=== PATIENT | female | born 1965 | race African-American/Black ===

== ENCOUNTER 2022-03-11 10:31 | Outpatient (CLI) | payer OTHER ==
[2022-03-11 12:18] LABS: #Eosinphils 0.4 10x3/uL (0.0-0.5); #Monocytes 0.7 10x3/uL (0.0-1.1); #Neutrophils 3.2 10x3/uL (1.5-8.4); %Basophils 0.6 % (0.0-2.0); %Eosinophils 6.1 % (0.0-6.0); %Lymphocytes 33.7 % (18.0-47.0); %Monocytes 11.1 % (0.0-10.0); Hemoglobin 11.9 g/dL (12.0-15.5); Mean Corpuscular HGB CONC 32.4 g/dL (32.0-36.0); Mean Corpuscular Hemoglobin 30.1 pg (27.0-33.0); Mean Corpuscular Volume 92.9 fl (81.6-98.3); Mean Platelet Volume 11.2 fl (7.4-10.4); Platelet Count 266 10x3/uL (150-450); Red Blood Cell (RBC) Count 3.95 10x6/uL (3.90-5.03); White Blood Cell (WBC) Count 6.6 10x3/uL (3.5-10.5)
[2022-03-11 12:33] LABS: INR-International Normal Ratio 0.9; Prothrombin Time 10.1 sec (9.5-12.1)
[2022-03-11 12:43] LABS: Anion Gap 14 mmol/L (10-20); BUN (Urea Nitrogen) 10 mg/dL (9.8-20.1); Calc. Creatinine Clearance 0 mL/min (70-130); Calcium 9.6 mg/dL (7.8-10.44); Carbon Dioxide 23 mmol/L (22-29); Chloride 107 mmol/L (98-107); Estimated GFR 84; Glucose 84 mg/dL (70-105); Potassium 4.8 mmol/L (3.5-5.1); Sodium 139 mmol/L (136-145)
== END 2022-03-11 10:32 | disposition home or self-care (01) ==
LOC: LABBT 10:31
PROVIDERS: ATTEND Orthopaedic Surgery
DX: Z01.818 Encounter for other preprocedural examination (principal); M16.12 Unilateral primary osteoarthritis, left hip
CPT/HCPCS: 80048; 85025; 85610; 87081; 93005; 93010

== ENCOUNTER 2022-03-16 05:27 | Observation (INO) | payer OTHER ==
[2022-03-16] MEDS ORDERED: Tranexamic Acid 1,000 MG/10 ML VIAL ONE (05:54)
[2022-03-16] MEDS ORDERED: Vancomycin (BATCH) 1.5 GRAM/300 ML BAG ONE (05:55)
[2022-03-16] MEDS ORDERED: Sodium Chloride 0.9% 100 ML ONE ×2 (05:55)
[2022-03-16] MEDS ORDERED: CEFAZOLIN 2 GM VIAL ONE (05:55)
[2022-03-16] MEDS ORDERED: Vancomycin 1 GM/200 ML (FROZEN) BAG ONE (05:56)
[2022-03-16] MEDS ORDERED: Midazolam HCl 2 mg/2 ml Vial ONE (06:04)
[2022-03-16] MEDS ORDERED: Propofol 1,000 MG/100 ML VIAL IV ONE ×2 (06:05→06:08)
[2022-03-16] MEDS ORDERED: fentaNYL PF 100 MCG/2 ML SYRINGE ONE ×2 (06:05→08:24)
[2022-03-16] MEDS ORDERED: Bupivacaine PF 0.5% 30 ML VIAL ONE (06:48)
[2022-03-16] MEDS ORDERED: Promethazine HCl 25 MG/ML VIAL IM PRN (06:58)
[2022-03-16] MEDS ORDERED: diphenhydrAMINE 25 MG CAP PO PRN (06:58)
[2022-03-16] MEDS ORDERED: HYDROcodone/Acetaminophen 10/325 mg Tablet PO PRN (06:58)
[2022-03-16] MEDS ORDERED: Zolpidem Tartrate 5 MG TAB PO PRN (06:58)
[2022-03-16 07:26] LABS: SARS-CoV-2 NAA Rapid Test Not Detected (NotDetected)
[2022-03-16] MEDS ORDERED: Ondansetron PF 4 MG/2 ML Vial ONE (07:30)
[2022-03-16] MEDS ORDERED: Rocuronium Bromide 10 MG/ML (10ML VIAL) ONE (07:30)
[2022-03-16] MEDS ORDERED: PROPOFOL 200 MG/20 ML VIAL ONE (07:30)
[2022-03-16] MEDS ORDERED: Glycopyrrolate 0.2 MG/ML 5 ML SYRINGE ONE (07:30)
[2022-03-16] MEDS ORDERED: Dexamethasone 20 MG/5 ML VIAL ONE (07:30)
[2022-03-16] MEDS ORDERED: Esmolol 100 MG/10 ML VIAL ONE (07:30)
[2022-03-16] MEDS ORDERED: Phenylephrine 10 MG/ML VIAL ONE (07:30)
[2022-03-16] MEDS ORDERED: Metoprolol Tartrate 5 MG/5 ML VIAL ONE ×2 (07:30→09:59)
[2022-03-16] MEDS ORDERED: Ketorolac Tromethamine 30 MG/ML VIAL ONE (07:30)
[2022-03-16] MEDS ORDERED: NEOSTIGMINE 3 MG/3 ML SYR 3 MG/3 ML SYRINGE ONE (07:30)
[2022-03-16] MEDS ORDERED: FENTANYL 50 MCG/ML 1 ML VIAL SLOW IVP PRN (07:32)
[2022-03-16] MEDS ORDERED: Ropivacaine 0.5% HCl/PF (150 MG/30 ML VIAL) ONE (08:10)
[2022-03-16] MEDS ORDERED: SUGAMMADEX SODIUM 200 MG/2 ML VIAL ONE ×2 (08:27→08:53)
[2022-03-16] MEDS ORDERED: Divalproex Sodium DR 500 MG TAB PO SCH (09:00)
[2022-03-16] MEDS ORDERED: FENTANYL 50 MCG/ML 1 ML VIAL ONE ×4 (09:34→13:46)
[2022-03-16] MEDS ORDERED: Lidocaine 1% MPF 2 ML VIAL ONE (12:09)
[2022-03-16 14:43] VITALS: BMI 27.9
[2022-03-16] MEDS: Aspirin 81 mg Enteric Coated Tablet PO SCH ×2 (14:56→20:15)
[2022-03-16] MEDS: Sodium Chloride 0.9% 1,000 ML IV SCH ×2 (14:56→15:05)
[2022-03-16] MEDS: CeleCOXIB 100 MG CAP PO SCH (14:56)
[2022-03-16] MEDS: traMADol HCl 50 MG TAB PO SCH ×3 (14:57→23:59)
[2022-03-16] MEDS: Senokot S 8.6-50 MG TAB PO SCH ×2 (14:57→20:15)
[2022-03-16] MEDS: Ferrous Gluconate 324 MG TAB PO SCH ×2 (14:57→20:15)
[2022-03-16] MEDS: hydrOXYzine 25 MG TAB PO SCH (14:57)
[2022-03-16] MEDS: Multivitamin W/ Minerals 1 TAB PO SCH (14:57)
[2022-03-16] MEDS: Lithium Carbonate 150 MG CAP PO SCH ×2 (14:57→20:15)
[2022-03-16] MEDS: CEFAZOLIN 2 GM in Sodium Chloride 0.9% 100 ML IVPB SCH ×2 (15:03→22:12)
[2022-03-16] MEDS: Ketorolac Tromethamine 30 MG/ML VIAL IVP SCH ×2 (15:04→22:12)
[2022-03-16] MEDS: HYDROcodone/Acetaminophen 10/325 mg Tablet PO PRN (15:04)
[2022-03-16] MEDS: Acetaminophen 325 MG TAB PO PRN (17:54)
[2022-03-16] MEDS: traZODone HCl 50 MG TAB PO SCH (20:15)
[2022-03-16] MEDS: Divalproex Sodium DR 500 MG TAB PO SCH (20:27)
[2022-03-17] MEDS: Ondansetron PF 4 MG/2 ML Vial IVP PRN ×2 (00:50→08:45)
[2022-03-17] MEDS: Sodium Chloride 0.9% 1,000 ML IV SCH ×3 (02:50→22:54)
[2022-03-17] MEDS ORDERED: Promethazine HCl 25 MG in Sodium Chloride 0.9% 50 ML IVPB SCH (03:15)
[2022-03-17] MEDS: Ketorolac Tromethamine 30 MG/ML VIAL IVP SCH ×3 (05:27→20:53)
[2022-03-17] MEDS: traMADol HCl 50 MG TAB PO SCH ×3 (05:28→17:48)
[2022-03-17 06:22] LABS: Hemoglobin 12.4 g/dL (12.0-16.0); Mean Corpuscular HGB CONC 32.8 g/dL (32.0-36.0); Mean Corpuscular Hemoglobin 31.2 pg (27.0-31.0); Mean Corpuscular Volume 95.3 fl (78.0-98.0); Mean Platelet Volume 9.4 fL (7.4-10.4); Platelet Count 194 10x3/uL (130-400); Red Blood Cell (RBC) Count 3.96 mill/uL (4.20-5.40); White Blood Cell (WBC) Count 17.2 10x3/uL (4.8-10.8)
[2022-03-17] MEDS: Calcium Carbonate 500 MG ChewTAB PO PRN (09:33)
[2022-03-17] MEDS: Ferrous Gluconate 324 MG TAB PO SCH ×2 (11:17→20:51)
[2022-03-17] MEDS: Senokot S 8.6-50 MG TAB PO SCH ×2 (11:18→20:49)
[2022-03-17] MEDS: Multivitamin W/ Minerals 1 TAB PO SCH (11:18)
[2022-03-17] MEDS: CeleCOXIB 100 MG CAP PO SCH (11:19)
[2022-03-17] MEDS: hydrOXYzine 25 MG TAB PO SCH (11:20)
[2022-03-17] MEDS: Lithium Carbonate 150 MG CAP PO SCH ×2 (11:20→20:50)
[2022-03-17] MEDS: Aspirin 81 mg Enteric Coated Tablet PO SCH ×2 (11:21→20:48)
[2022-03-17] MEDS: Acetaminophen 325 MG TAB PO PRN ×2 (14:51→20:48)
[2022-03-17] MEDS: traZODone HCl 50 MG TAB PO SCH (20:52)
[2022-03-17] MEDS: Divalproex Sodium DR 500 MG TAB PO SCH (21:04)
[2022-03-18] MEDS: traMADol HCl 50 MG TAB PO SCH ×3 (00:05→11:07)
[2022-03-18] MEDS: Acetaminophen 325 MG TAB PO PRN (03:50)
[2022-03-18] MEDS: Calcium Carbonate 500 MG ChewTAB PO PRN ×2 (04:03→09:34)
[2022-03-18] MEDS: Ketorolac Tromethamine 30 MG/ML VIAL IVP SCH ×2 (05:38→13:57)
[2022-03-18] MEDS: Senokot S 8.6-50 MG TAB PO SCH (08:11)
[2022-03-18] MEDS: Aspirin 81 mg Enteric Coated Tablet PO SCH (08:11)
[2022-03-18] MEDS: hydrOXYzine 25 MG TAB PO SCH (08:12)
[2022-03-18] MEDS: Multivitamin W/ Minerals 1 TAB PO SCH (08:12)
[2022-03-18] MEDS: Ferrous Gluconate 324 MG TAB PO SCH (08:12)
[2022-03-18] MEDS: Lithium Carbonate 150 MG CAP PO SCH (08:12)
[2022-03-18] MEDS: CeleCOXIB 100 MG CAP PO SCH (08:12)
[2022-03-18] MEDS: Sodium Chloride 0.9% 1,000 ML IV SCH (08:17)
[2022-03-18] MEDS: HYDROcodone/Acetaminophen 10/325 mg Tablet PO PRN (13:56)
[2022-03-18 17:06] VITALS: BP 117/87; TEMP 97.2
== END 2022-03-18 17:35 | disposition home or self-care (01) ==
LOC: SDC 05:27 → SURG A 14:35
PROVIDERS: ADMIT Orthopaedic Surgery; ATTEND Orthopaedic Surgery
PROC: 0SRB04A Replacement of Left Hip Joint with Ceramic on Polyethylene Synthetic Substitute, Uncemented, Open Approach (ICD-10-PCS; principal; 2022-03-16)
DX: M16.12 Unilateral primary osteoarthritis, left hip (principal); I10 Essential (primary) hypertension; F17.200 Nicotine dependence, unspecified, uncomplicated; Z79.899 Other long term (current) drug therapy; Z20.822 Contact with and (suspected) exposure to COVID-19
CPT/HCPCS: 36415; 85027; 96374; 96375; 96376; C1776; G0378; J1100; J1885; J2250; J2370; J2405; J2550; J2704; J2795; J3010; J3370; J3370-JW; J3490; J7050; S0020; U0002

== ENCOUNTER 2022-07-27 09:44 | Outpatient (CLI) | payer OTHER ==
[2022-07-27 11:44] LABS: #Basophils 0.1 10x3/uL (0.0-0.2); #Eosinphils 0.3 10x3/uL (0.0-0.5); #Monocytes 0.7 10x3/uL (0.0-1.1); %Basophils 0.9 % (0.0-2.0); %Lymphocytes 38.1 % (18.0-47.0); %Monocytes 10.7 % (0.0-10.0); %Neutrophils 44.7 % (40.0-75.0); Hemoglobin 11.1 g/dL (12.0-15.5); Mean Corpuscular HGB CONC 30.9 g/dL (32.0-36.0); Mean Corpuscular Hemoglobin 28.1 pg (27.0-33.0); Mean Corpuscular Volume 90.9 fl (81.6-98.3); Mean Platelet Volume 11.7 fl (7.4-10.4); Platelet Count 289 10x3/uL (150-450); Red Blood Cell (RBC) Count 3.95 10x6/uL (3.90-5.03); White Blood Cell (WBC) Count 6.7 10x3/uL (3.5-10.5)
[2022-07-27 11:56] LABS: INR-International Normal Ratio 0.9; Prothrombin Time 10.1 sec (9.5-12.1)
[2022-07-27 12:00] LABS: Anion Gap 13 mmol/L (10-20); BUN (Urea Nitrogen) 9 mg/dL (9.8-20.1); Calc. Creatinine Clearance 0 mL/min (70-130); Calcium 9.7 mg/dL (7.8-10.44); Carbon Dioxide 25 mmol/L (22-29); Chloride 108 mmol/L (98-107); Estimated GFR 89; Glucose 77 mg/dL (70-105); Potassium 4.4 mmol/L (3.5-5.1); Sodium 142 mmol/L (136-145)
== END 2022-07-27 09:45 | disposition home or self-care (01) ==
LOC: LABBT 09:44
PROVIDERS: ATTEND Orthopaedic Surgery
DX: Z01.818 Encounter for other preprocedural examination (principal); M16.11 Unilateral primary osteoarthritis, right hip
CPT/HCPCS: 80048; 85025; 85610; 87081; 93005; 93010

== ENCOUNTER 2022-08-10 05:40 | Observation (INO) | payer OTHER ==
[2022-08-06 13:56] VITALS: BMI 24.3
[2022-08-10] MEDS ORDERED: Tranexamic Acid 1,000 MG/10 ML VIAL ONE (06:18)
[2022-08-10] MEDS ORDERED: Sodium Chloride 0.9% 100 ML ONE ×2 (06:18→06:54)
[2022-08-10] MEDS ORDERED: Vancomycin 1 GM/200 ML (FROZEN) BAG ONE (06:18)
[2022-08-10] MEDS ORDERED: Midazolam HCl 2 mg/2 ml Vial ONE (06:19)
[2022-08-10] MEDS ORDERED: fentaNYL PF 100 MCG/2 ML SYRINGE ONE ×2 (06:20→09:11)
[2022-08-10] MEDS ORDERED: Propofol 1,000 MG/100 ML VIAL IV ONE (06:20)
[2022-08-10] MEDS ORDERED: Bupivacaine PF 0.5% 30 ML VIAL ONE ×2 (06:23→07:52)
[2022-08-10] MEDS ORDERED: ePHEDrine Sulfate 50 MG/10 ML VIAL ONE (06:45)
[2022-08-10] MEDS ORDERED: NEOSTIGMINE 3 MG/3 ML SYR 3 MG/3 ML SYRINGE ONE (06:45)
[2022-08-10] MEDS ORDERED: Ondansetron PF 4 MG/2 ML Vial ONE (06:45)
[2022-08-10] MEDS ORDERED: PROPOFOL 200 MG/20 ML VIAL ONE (06:45)
[2022-08-10] MEDS ORDERED: Ketorolac Tromethamine 30 MG/ML VIAL ONE (06:45)
[2022-08-10] MEDS ORDERED: Glycopyrrolate 0.2 MG/ML 5 ML SYRINGE ONE (06:45)
[2022-08-10] MEDS ORDERED: Labetalol HCl 100 MG/20 ML VIAL ONE (06:45)
[2022-08-10] MEDS ORDERED: Metoprolol Tartrate 5 MG/5 ML VIAL ONE (06:45)
[2022-08-10] MEDS ORDERED: Rocuronium Bromide 10 MG/ML (10ML VIAL) ONE (06:45)
[2022-08-10] MEDS ORDERED: Dexamethasone 20 MG/5 ML VIAL ONE (06:45)
[2022-08-10] MEDS ORDERED: CEFAZOLIN 2 GM VIAL ONE (06:54)
[2022-08-10] MEDS ORDERED: Promethazine HCl 25 MG/ML VIAL IM PRN (07:09)
[2022-08-10] MEDS ORDERED: diphenhydrAMINE 25 MG CAP PO PRN (07:09)
[2022-08-10] MEDS ORDERED: Acetaminophen 325 MG TAB PO PRN (07:09)
[2022-08-10] MEDS ORDERED: Ondansetron PF 4 MG/2 ML Vial IVP PRN (07:09)
[2022-08-10] MEDS ORDERED: Zolpidem Tartrate 5 MG TAB PO PRN (07:09)
[2022-08-10] MEDS ORDERED: HYDROcodone/Acetaminophen 10/325 mg Tablet PO PRN (07:09)
[2022-08-10] MEDS ORDERED: fentaNYL 50 mcg/mL 1 mL Vial SLOW IVP PRN (07:25)
[2022-08-10] MEDS ORDERED: hydrOXYzine 25 MG TAB PO PRN (07:26)
[2022-08-10] MEDS ORDERED: HYDROmorphone 2 MG/ML VIAL ONE (07:36)
[2022-08-10] MEDS ORDERED: Lidocaine 1% (PF) 30 ML VIAL ONE (07:52)
[2022-08-10] MEDS ORDERED: EPINEPHrine 1 MG/ML AMP ONE (07:52)
[2022-08-10] MEDS: Sodium Chloride 0.9% 1,000 ML IV SCH ×2 (10:00→17:19)
[2022-08-10] MEDS: Divalproex Sodium DR 500 MG TAB PO SCH (12:38)
[2022-08-10] MEDS: Senokot S 8.6-50 MG TAB PO SCH ×2 (12:38→21:32)
[2022-08-10] MEDS: Multivitamin W/ Minerals 1 TAB PO SCH (12:38)
[2022-08-10] MEDS: Ferrous Gluconate 324 MG TAB PO SCH ×2 (12:38→21:32)
[2022-08-10] MEDS: Lithium Carbonate 150 MG CAP PO SCH ×2 (12:38→21:32)
[2022-08-10] MEDS: Aspirin 81 mg Enteric Coated Tablet PO SCH ×2 (12:38→21:32)
[2022-08-10] MEDS: Ketorolac Tromethamine 30 MG/ML VIAL IVP SCH ×2 (15:11→21:32)
[2022-08-10] MEDS: CEFAZOLIN 2 GM in Sodium Chloride 0.9% 100 ML IVPB SCH ×2 (15:15→21:34)
[2022-08-10] MEDS: HYDROcodone/Acetaminophen 10/325 mg Tablet PO PRN (17:39)
[2022-08-10] MEDS ORDERED: traZODone HCl 50 MG TAB PO SCH (21:00)
[2022-08-11] MEDS: Sodium Chloride 0.9% 1,000 ML IV SCH ×2 (03:23→08:16)
[2022-08-11] MEDS: Ketorolac Tromethamine 30 MG/ML VIAL IVP SCH ×2 (04:38→13:40)
[2022-08-11] MEDS: HYDROcodone/Acetaminophen 10/325 mg Tablet PO PRN ×3 (04:38→14:41)
[2022-08-11 07:04] LABS: Hemoglobin 9.6 g/dL (12.0-16.0); Mean Corpuscular HGB CONC 33.9 g/dL (32.0-36.0); Mean Corpuscular Hemoglobin 30.7 pg (27.0-31.0); Mean Corpuscular Volume 90.7 fl (78.0-98.0); Mean Platelet Volume 9.5 fL (7.4-10.4); Platelet Count 167 10x3/uL (130-400); RBC Distribution Width 14.3 % (11.5-14.5); Red Blood Cell (RBC) Count 3.14 mill/uL (4.20-5.40); White Blood Cell (WBC) Count 10.2 10x3/uL (4.8-10.8)
[2022-08-11] MEDS: Lithium Carbonate 150 MG CAP PO SCH (08:11)
[2022-08-11] MEDS: Senokot S 8.6-50 MG TAB PO SCH (08:11)
[2022-08-11] MEDS: Multivitamin W/ Minerals 1 TAB PO SCH (08:11)
[2022-08-11] MEDS: Aspirin 81 mg Enteric Coated Tablet PO SCH (08:12)
[2022-08-11] MEDS: Ferrous Gluconate 324 MG TAB PO SCH (08:12)
[2022-08-11] MEDS: Divalproex Sodium DR 500 MG TAB PO SCH (08:12)
[2022-08-11 16:01] VITALS: BP 103/67; TEMP 98.6
== END 2022-08-11 16:40 | disposition home or self-care (01) ==
LOC: SDC 05:40 → SURG A 09:52
PROVIDERS: ADMIT Orthopaedic Surgery; ATTEND Orthopaedic Surgery
PROC: 0SR904A Replacement of Right Hip Joint with Ceramic on Polyethylene Synthetic Substitute, Uncemented, Open Approach (ICD-10-PCS; principal; 2022-08-10)
DX: M16.11 Unilateral primary osteoarthritis, right hip (principal); I10 Essential (primary) hypertension; F17.200 Nicotine dependence, unspecified, uncomplicated; Z79.1 Long term (current) use of non-steroidal anti-inflammatories (NSAID); Z79.899 Other long term (current) drug therapy; Z96.642 Presence of left artificial hip joint
CPT/HCPCS: 36415; 85027; C1776; J0171; J1100; J1170; J1885; J2001; J2250; J2405; J2704; J3370-JW; J3490; J7050; S0020